=== PATIENT | male | born 1995 | race Two or more races ===

== ENCOUNTER 2018-09-13 15:33 | Emergency (ER) | payer MEDICAID ==
[~2018-09-13] VITALS: Ht 167.6 cm; Wt 79.8 kg
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
--- NOTE | 2018-09-13 15:45 | NUR ---
PT SEEN AND EXAMINED BY HIRO FRANCOIS NP.
[2018-09-13] MEDS ORDERED: ONDANSETRON HCL/PF 4 MG/2 ML VIAL ONE (15:53)
[2018-09-13] MEDS ORDERED: ONDANSETRON HCL/PF 4 MG/2 ML VIAL IVP ONE (16:00)
[2018-09-13] MEDS ORDERED: IV NS 0.9% 1,000 ML BAG IV ONE (16:00)
--- NOTE | 2018-09-13 16:00 | NUR ---
IV LINE ESTABLISHED, LABS DRAWNED AND SENT TO LAB.
[2018-09-13 16:02] LABS: BASOPHILS % (AUTO) 0.1 % (0.0-2.0); EOSINOPHILS % (AUTO) 0.1 % (0.0-6.0); HEMATOCRIT 47 % (39-51); HEMOGLOBIN 16.6 g/dL (13.5-17.5); LYMPHOCYTES # (AUTO) 1.5 /CMM (0.8-4.8); LYMPHOCYTES % (AUTO) 12.1 % (20.0-44.0); MEAN CORPUSCULAR HGB CONC 35 g/dl (31.0-36.0); MEAN CORPUSCULAR VOLUME 87 fL (80-96); MONOCYTES # (AUTO) 0.4 /CMM (0.1-1.30); MONOCYTES % (AUTO) 3.6 % (2.0-12.0); NEUTROPHILS # (AUTO) 10.3 /CMM (1.8-8.9); NEUTROPHILS % (AUTO) 84.1 % (43.0-81.0); PLATELET COUNT (AUTO) 180 /CMM (150-450); RED BLOOD CELL COUNT(AUTO) 5.37 MIL/uL (4.5-6.0); WHITE BLOOD COUNT (AUTO) 12.2 K/uL (4.3-11.0)
--- NOTE | 2018-09-13 16:10 | NUR ---
URINE SPECIMEN COLLECTED AND SENT TO LAB.
[2018-09-13 16:13] LABS: CALCIUM, SERUM 9.3 mg/dL (8.5-10.1); CREATININE 1.2 mg/dL (0.6-1.3); POTASSIUM 3.1 mmol/L (3.5-5.1)
[2018-09-13] MEDS ORDERED: POTASSIUM CHLORIDE 20 MEQ TAB.PRT.SR PO ONE ×3 (16:30→16:56)
[2018-09-13 17:20] VITALS: BP 132/75
[2018-09-13] MEDS ORDERED: ACETAMINOPHEN ES 500 MG TABLET ONE (17:27)
[2018-09-13] MEDS ORDERED: ACETAMINOPHEN ES 500 MG TABLET PO ONE (17:30)
== END 2018-09-13 17:37 | disposition home or self-care (01) ==
LOC: ER 15:34
DX: R00.2 Palpitations (principal); E87.6 Hypokalemia; E86.0 Dehydration
CPT/HCPCS: 36415; 80048; 80305; 82962; 84443; 85025; 93005; 96361; 96374; 99284; J2405; J7030

== ENCOUNTER 2019-12-11 13:49 | Emergency (ER) | payer OTHER ==
[~2019-12-11] VITALS: Ht 167.6 cm; Wt 80.3 kg
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
--- NOTE | 2019-12-11 14:39 | NUR ---
DR MERIDA AT BEDSIDE FOR EVAL
[2019-12-11] MEDS ORDERED: ACETAMINOPHEN ES 500 MG TABLET ONE (14:49)
[2019-12-11] MEDS ORDERED: ACETAMINOPHEN 325 MG TABLET PO ONE (15:00)
--- NOTE | 2019-12-11 15:00 | NUR ---
PICKED UP BY KINGSLEY PINZON VIA [facility] FOR CT SCAN
--- NOTE | 2019-12-11 15:40 | NUR ---
HERBERTH, , WILL COME TO CHARGE ACCOUNT AUTHORIZER PATIENT ETA 15-20MIN
--- NOTE | 2019-12-11 16:01 | NUR ---
Patient picked up by and discharged to home in stable condition. Written and verbal after care instructions given. Patient and verbalizes understanding of instruction.
[2019-12-11 16:02] VITALS: BP 116/58
== END 2019-12-11 16:02 | disposition home or self-care (01) ==
LOC: ER 13:50
DX: F10.10 Alcohol abuse, uncomplicated (principal); R51 Headache; Y90.9 Presence of alcohol in blood, level not specified
CPT/HCPCS: 70450-TC

== ENCOUNTER 2024-02-17 11:54 | Emergency (ER) | payer MEDICAID, OTHER ==
[~2024-02-17] VITALS: Ht 167.6 cm; Wt 77.1 kg
[2024-02-17 12:08] VITALS: BP 146/85; TEMP 98.2
[2024-02-17] MEDS ORDERED: CIPR7.5D9 RIGHT EAR (12:19)
[2024-02-17 12:34] VITALS: O2SAT 98
== END 2024-02-17 12:34 | disposition home or self-care (01) ==
LOC: ER 11:58
DX: H60.91 Unspecified otitis externa, right ear (principal); Z79.899 Other long term (current) drug therapy

== ENCOUNTER 2025-03-07 12:27 | Emergency (ER) | payer OTHER ==
[~2025-03-07 12:27] MED LIST: CIPR7.5D9 RIGHT EAR
== END 2025-03-07 13:10 | disposition left against medical advice (07) ==
LOC: ER 12:36
DX: Z53.21 Procedure and treatment not carried out due to patient leaving prior to being seen by health care provider (principal)

== ENCOUNTER 2025-03-19 09:43 | Emergency (ER) | payer OTHER ==
[~2025-03-19] VITALS: Ht 167.6 cm; Wt 74.8 kg
[2025-03-19 09:58] VITALS: TEMP 98.3
[2025-03-19] MEDS ORDERED: KETOROLAC TROMETHAMINE 15 MG/ML VIAL ONE (10:18)
[2025-03-19] MEDS ORDERED: ONDANSETRON HCL/PF 4 MG/2 ML VIAL ONE (10:18)
[2025-03-19 10:25] LABS: APPEARANCE,URINE CLEAR (CLEAR); BLOOD, URINE NEGATIVE Ery/uL (NEGATIVE); LEUKOCYTE ESTERASE ,URINE NEGATIVE (NEGATIVE); NITRITE, URINE NEGATIVE (NEGATIVE); UGLUCOSE NEGATIVE (NEGATIVE)
[2025-03-19] MEDS: ONDANSETRON HCL/PF 4 MG/2 ML VIAL IVP ONE (10:44)
[2025-03-19] MEDS: IV NS 0.9% 1,000 ML BAG IV ONE (10:45)
[2025-03-19] MEDS ORDERED: ACETAMINOPHEN ES 500 MG TABLET ONE (10:47)
[2025-03-19] MEDS: KETOROLAC TROMETHAMINE 15 MG/ML VIAL IV ONE (10:50)
[2025-03-19] MEDS: ACETAMINOPHEN 325 MG TABLET PO ONE (10:50)
[2025-03-19 11:07] LABS: PLATELET COUNT (AUTO) 191 K/uL (150-450); RED BLOOD CELL COUNT(AUTO) 5.66 MIL/uL (4.5-6.0); RED CELL DISTRIBUTION WIDTH 13.2 % (11.5-15.0); WHITE BLOOD COUNT (AUTO) 4.0 K/uL (4.3-11.0)
[2025-03-19 11:11] LABS: CALCIUM, SERUM 9.6 mg/dL (8.5-10.1); CREATININE 1.0 mg/dL (0.6-1.3); SODIUM SERUM 141.0 mmol/L (136-145); UREA NITROGEN, BLOOD 10.0 mg/dL (7-18)
[2025-03-19 11:21] LABS: ASPARTATE AMINOTRANSFERASE 15.0 U/L (15-37); TOTAL PROTEIN, SERUM 9.0 g/dL (6.4-8.2)
[2025-03-19] MEDS ORDERED: IOHEXOL-300 100 ML VIAL IV ONE (11:43)
[2025-03-19] MEDS ORDERED: IV NS 0.9% 250 ML IV ONE (11:43)
[2025-03-19] MEDS ORDERED: CT SWABBABLE VALVE TRANS SET 1 EA INFUS.SET MC ONE (11:43)
[2025-03-19 14:20] VITALS: BP 120/73; O2SAT 99
== END 2025-03-19 14:21 | disposition home or self-care (01) ==
LOC: ER 09:44
DX: K59.00 Constipation, unspecified (principal); R10.32 Left lower quadrant pain; K57.30 Diverticulosis of large intestine without perforation or abscess without bleeding; K40.20 Bilateral inguinal hernia, without obstruction or gangrene, not specified as recurrent; E78.5 Hyperlipidemia, unspecified; Z88.8 Allergy status to other drugs, medicaments and biological substances
CPT/HCPCS: 99285; 74177; 96374; 96361; 76870; 85025; 80048; 83690; 80076; 81003; 36415; J1885; J2405; J7030; J7050; Q9967